=== PATIENT | female | born 1990 | race Caucasian/White ===

== ENCOUNTER 2024-10-29 22:58 | Emergency (ER) | payer MEDICAID ==
[~2024-10-29] VITALS: Ht 152.4 cm; Wt 81.8 kg
[2024-10-29 23:02] VITALS: TEMP 98.2
[2024-10-29 23:58] VITALS: BP 123/88; PULSE 81; RESP 17; O2SAT 97
[2024-10-30] MEDS ORDERED: IBUP-1492 PO (00:13)
[2024-10-30] MEDS: IBUPROFEN 600 MG TABLET PO ONE (00:16)
== END 2024-10-30 00:21 | disposition home or self-care (01) ==
LOC: EMS 23:47
DX: S83.92XA Sprain of unspecified site of left knee, initial encounter (principal); W50.1XXA Accidental kick by another person, initial encounter; Y93.89 Activity, other specified; Y92.89 Other specified places as the place of occurrence of the external cause; Y99.8 Other external cause status
CPT/HCPCS: 99283